=== PATIENT | male | born 1955 | race Caucasian/White ===

== ENCOUNTER 2020-04-18 08:33 | Outpatient (CLI) | payer BC ==
--- NOTE | 2020-04-18 11:00 | ULT ---
SCROTAL ULTRASOUND: INDICATION: History of scrotal mass. COMPARISON: None. TECHNIQUE: Perdomo scale, color Doppler, and spectral Doppler images were obtained of the scrotum. FINDINGS: There is a large cystic collection seen involving the right hemiscrotum measuring 15.5 x 9.6 x 10.5 c m compressing the right testicle posteriorly within the right hemiscrotum. The right testicle measur es 4.3 x 2.4 x 4.7 cm and demonstrates normal vascular flow. The right epididymis was not well seen. There is a small left hydrocele. The left testicle measures 3.5 x 2.2 x 4.8 cm. There is normal fidelia w to the left testicle. The visualized left epididymis appears within normal limits. IMPRESSION: 1. Large cystic collection seen within the right hemiscrotum is suspicious for very large hydrocele or potentially a cystic lesion that is arising from a poorly visualized epididymis, possibly an epidi dymal cyst. No solid lesion is evident. There is normal flow to the right testicle. 2. Small left-sided hydrocele. POS: BH
== END 2020-04-18 08:34 | disposition home or self-care (01) ==
LOC: ULT 08:33
PROVIDERS: ATTEND Student in an Organized Health Care Education/Training Program
DX: N50.89 Other specified disorders of the male genital organs (principal); N43.3 Hydrocele, unspecified
CPT/HCPCS: 76870; 93976